=== PATIENT | male | born 1945 | race Caucasian/White ===

== ENCOUNTER 2018-03-12 11:23 | Observation (INO) | payer MEDICARE, OTHER ==
[2018-03-12] MEDS ORDERED: Gentamicin ADULT (*) 140 MG in NS 0.9% 100 ML* 100 ML IVPB ONE (13:28)
[2018-03-12] MEDS ORDERED: NS 0.9% IVPB ONE (13:28)
[2018-03-12] MEDS ORDERED: GENTAMICIN ADULT IVPB ONE (13:28)
[2018-03-12] MEDS ORDERED: NS 0.9% 1000 ML* 1,000 ML IV ONE (13:28)
[2018-03-12] MEDS ORDERED: Piperacillin/Tazobac ADVAN(*) 3.375 GM in NS 0.9% 100 ML* 100 ML IVPB ONE (13:28)
[2018-03-12] MEDS ORDERED: NS 0.9% 1000 ML* 2,000 ML IV ONE (13:29)
--- NOTE | 2018-03-12 13:36 | RAD ---
Indication: Chills, nausea and sepsis. 2 views of the chest including dual energy PA views demonstrate no mediastinal shift. Heart is of normal size and configuration. Lung roberts demonstrate no pleural fluid, nodules or masses. No definite alveolar consolidation is noted. IMPRESSION: No evidence of intracranial mass or hemorrhage is noted.
[2018-03-12] MEDS ORDERED: Acetaminophen TAB* 325 MG PO ONE (13:40)
--- NOTE | 2018-03-12 13:56 | ED ---
HPI Febrile Illness - HPI Summary HPI Summary: The pt is a 72 y/o male presenting to [facility] c/o sudden onset fever since today morning. He was referred by Dr. Orlando Weiss MD who gave him abx in his office today. The pt had an indwelling Alcaraz catheter changed 4 days ago. He notes chills, tremors and pallor but denies body aches. He has a follow up on Thursday 03/[address] Dye. - History of Current Complaint Chief Complaint: EDFluSymptoms Time Seen by Provider: 03/12/18 13:19 Hx Obtained From: Patient, Family/[employer] - Onset/Duration: Still Present Timing: Constant Current Severity: None Pain Intensity: 0 Pain Scale Used: 0-10 Numeric Aggravating Factors: Nothing Alleviating Factors: Nothing Associated Signs and Symptoms: Chills - Allergy/Home Medications Allergies/Adverse Reactions: Allergies Allergy/AdvReac Type Severity Reaction Status Date / Time No Known Allergies Allergy Verified 03/12/18 12:14 Home Medications: Home Medications Dutasteride (NF) [Avodart (NF)] 0.5 mg PO DAILY 03/12/18 [History Confirmed ] Sildenafil Citrate [Viagra] 50 - 100 mg PO DAILY PRN 03/12/18 [History Confirmed 03/12/18] Tamsulosin CAP* [Flomax CAP*] 0.4 mg PO DAILY 03/12/18 [History Confirmed ] PMH/Surg Hx/FS Hx/Imm Hx Previously Healthy: No Endocrine/Hematology History: Denies: Hx Diabetes Cardiovascular History: Denies: Hx Angina, Hx Coronary Artery Disease, Hx Hypercholesterolemia, Hx Hypertension, Hx Myocardial Infarction, Hx Pacemaker/ICD, Hx Valvular Heart Disease Respiratory History: Denies: Hx Asthma, Hx Chronic Obstructive Pulmonary Disease (COPD) History: Reports: Other Problems/Disorders - Indwelling Alcaraz catheter Sensory History: Denies: Hx Hearing Aid Psychiatric History: Denies: Hx Panic Disorder - Cancer History Cancer Type, Location and Year: None reported - Surgical History Surgery Procedure, Year, and Place: APPENDIX AGE 11, LEFT WRIST SURGERY, Infectious Disease History: No Infectious Disease History: Denies: Traveled Outside the [place] in Last 30 Days - Family History Known Family History: Negative: Cardiac Disease - Social History Occupation: Retired Lives: With Family Alcohol Use: Daily Alcohol Amount: 2 glasses/wine Substance Use Type: Reports: None Smoking Status (MU): Former Smoker Type: Cigarettes Review of Systems Constitutional: Negative - Body aches , Other - Positive: Tremors Positive: Fever, Chills Positive: Other - Positive: Pallor All Other Systems Reviewed And Are Negative: Yes Physical Exam - Summary Physical Exam Summary: GENERAL: Patient is a well developed and nourished M who is lying comfortable in the stretcher. Patient is not in any acute respiratory distress. HEAD AND FACE: Normocephalic EYES: PERRLA, EOMI x 2. EARS: Hearing grossly intact. MOUTH: Oropharynx within normal limits. NECK: Supple, trachea is midline, no adenopathy, no JVD, no carotid bruit. CHEST: Symmetric, no tenderness at palpation LUNGS: Clear to auscultation bilaterally. No wheezing or crackles. CVS: Regular rate and rhythm, S1 and S2 present, no murmurs or gallops appreciated. ABDOMEN: Soft, non-tender. Bowel sounds are normal. No abdominal abnormal pulsations. EXTREMITIES: Full ROM in all major joints, no edema, no cyanosis or clubbing. NEURO: Alert and oriented x 3. No acute neurological deficits. Speech is normal and follows commands. SKIN: Dry and warm Triage Information Reviewed: Yes Vital Signs On Initial Exam: Initial Vitals Temp Pulse Resp BP Pulse Ox 98.1 F 84 16 133/64 98 03/12/18 12:09 03/12/18 12:09 03/12/18 12:09 03/12/18 12:09 03/12/18 12:09 Vital Signs Reviewed: Yes Diagnostics - Vital Signs Vital Signs Temp Pulse Resp BP Pulse Ox 03/12/18 12:09 98.1 F 84 16 133/64 98 - Laboratory Result Diagrams: 03/12/18 13:50 03/12/18 13:50 Lab Statement: Any lab studies that have been ordered have been reviewed, and results considered in the medical decision making process. - Radiology CXR Radiology Interpretation Completed By: Radiologist - IMPRESSION: No evidence of intracranial mass or hemorrhage is noted. The ED physician reviewed this radiology report. Course/Dx - Course Course Of Treatment: A 72 year-old M presents to the ED with a CC of sudden onset fever since today morning. The pt had an indwelling Alcaraz catheter changed 4 days ago. He notes chills, tremors and pallor but denies body aches. A physical exam is unremarkable. A CXR is unremarkable. In the ED course, pt was given Acetaminophen 975 mg PO, Gentamicin in 100ml N.s O.9% IVPB, N.s 0.9% 3000mL IV and Piperacillin 3.375 mg in 100mL N.s 0.9% IVPB which improved the symptoms. I discussed the care of the patient with Dr. Matti MD- hospitalist who agreed to admit the patient. Patient will be admitted with a final Dx of fever. I discussed results with patient. The patient agrees with this plan. Allergies noted. - Diagnoses Provider Diagnoses: Fever - Provider Notifications Discussed Care Of Patient With: Alla Chino - Hospitalist Time Discussed With Above Provider: 13:55 Instructed by Provider To: Admit As Inpatient Discharge - Sign-Out/Discharge Documenting (check all that apply): Patient Departure - Admit - Discharge Plan Condition: Stable Disposition: ADMITTED TO [facility] - Billing Disposition and Condition Condition: STABLE Disposition: Admitted to [facility] - Attestation Statements Document Initiated by Scribe: Yes Documenting Scribe: Carolina James Provider For Whom Scribe is Documenting (Include Credential): Dr. Kan Linda MD Scribe Attestation: Carolina Vargas , scribed for Dr. Kan Linda MD on 03/12/18 at 2100. Scribe Documentation Reviewed: Yes Provider Attestation: The documentation as recorded by the scribCarolina lloyd accurately reflects the service I personally performed and the decisions made by me, Dr. Kan Linda MD
[2018-03-12 14:12] LABS: ABS Basophils 0 10^3/ul (0-0.2); ABS Eosinophils 0 10^3/ul (0-0.6); ABS Lymphocytes 0.2 10^3/ul (1.0-4.8); ABS Monocytes 0.6 10^3/ul (0-0.8); ABS Neutrophils 8.9 10^3/ul (1.5-7.7); ABS Nucleated RBC 0 10^3/ul; Eosinophil % 0.1 % (0-6); Hematocrit 39 % (42-52); Hemoglobin 13.1 g/dl (14.0-18.0); Lymphocyte % 2.2 % (25-47); Mean Corpuscular HGB Conc 34 g/dl (31-36); Mean Corpuscular Hemoglobin 31 pg (27-31); Mean Corpuscular Volume 92 fL (80-94); Mean Platelet Volume 8.6 um3 (7.4-10.4); Nucleated Red Blood Cells % 0; Platelet Count 141 10^3/ul (150-450); Red Blood Count 4.24 10^6/ul (4.00-5.40); Red Cell Distribution Width 13 % (10.5-15); White Blood Count 9.7 10^3/ul (3.5-10.8)
[2018-03-12 14:30] LABS: INR 0.96 (0.77-1.02)
[2018-03-12 14:45] LABS: EGFR Non-African American 53.6 (>60)
[2018-03-12] MEDS ORDERED: Ondansetron INJ* 2 MG/ML VIAL IV PRN (14:49)
[2018-03-12] MEDS ORDERED: Gentamicin ADULT per pharmacy 1 NOTE MISC FOLLOW UP PRN (14:56)
[2018-03-12] MEDS ORDERED: Zosyn per Pharmacy* NOTE FOLLOW UP SCH (15:00)
[2018-03-12 16:39] LABS: Urine Appearance Cloudy; Urine Blood 1+ (Negative); Urine Color Yellow; Urine Ketones Negative (Negative); Urine Protein 2+(100 mg/dL) (Negative); Urine Red Blood Cell Absent (Absent); Urine Specific Gravity 1.012 (1.010-1.030); Urine Urobilinogen Negative (Negative); Urine White Blood Cell 3+(>20/hpf) (Absent)
[2018-03-12] MEDS: ZOSYN 3.375 GM Q8H per EXTENDED INFUSION IVPB SCH ×2 (18:22)
[2018-03-12] MEDS: NS 0.9% 1000 ML* 1,000 ML IV SCH (18:26)
[2018-03-12] MEDS ORDERED: Tamsulosin CAP* 0.4 MG PO SCH (21:00)
--- NOTE | 2018-03-12 21:39 | HP ---
CC: Dr. Dye; Dr. Bryson Mayer * [facility] MEDICINE HISTORY AND PHYSICAL: DATE OF ADMISSION: 03/12/18 UROLOGIST: Dr. Dye. PRIMARY CARE PHYSICIAN: Dr. Bryson Mayer. ATTENDING PHYSICIAN: Dr. Alla Chino * (dictation provided by Frida Winter NP ). CHIEF COMPLAINT: Rigors. HISTORY OF PRESENT ILLNESS: Mr. Pa is a 72-year-old male with a past medical history of transient cardiomyopathy, now resolved, and recent diagnosis of urinary outlet obstruction secondary to enlarged prostate with bilateral hydronephrosis and chronic outpatient Alcaraz, who presents today to the hospital with sudden onset of chills and rigors at 9:30 a.m. this morning. Mr. Pa states that he originally had evaluation on 01/22/18 with abdomen and bladder ultrasound, which showed that he had bilateral hydronephrosis. Shortly after that, he had consultation with Dr. Dye and a Alcaraz was placed. The patient states that last week he went in to have the Alcaraz removed and did well until Thursday, when it was felt that he was likely having more retention; the patient, therefore, required replacement of the Alcaraz catheter. The patient was doing well until 9:30 a.m. this morning when he had the sudden onset of shaking chills. He went immediately to Dr. Dye's office where he was evaluated and thought to be having rigors with suspicion for sepsis secondary to urinary tract infection with indwelling Alcaraz. The patient denies any other symptoms. States that prior to the development of rigors, he had no symptoms including chest pain, shortness of breath, nausea, vomiting, diarrhea, or abdominal pain. In the emergency room, Mr. Pa had labs, which showed no leukocytosis. His CRP was only 10.47. His creatinine was 1.32, which is slightly elevated from his baseline. Urinalysis is pending and urine cultures were sent from Dr. Dye 's office. Lactic acid is 1.1. Vitals are stable, but he is febrile with a temperature of 103.6. PAST MEDICAL HISTORY: 1. History of cardiomyopathy, now resolved. 2. History of prostate enlargement with bladder outlet obstruction. MEDICATIONS: 1. Ramipril 2.5 mg p.o. daily. 2. Sildenafil p.r.n. ALLERGIES: No known drug allergies. FAMILY HISTORY: The patient reports his mother is still alive at age 97, she has no significant past medical history; and dad at 99 of old age. SOCIAL HISTORY: The patient was a former smoker in college. He denies alcohol or drug use. He lives with his . His , Keya, will be the healthcare proxy. REVIEW OF SYSTEMS: A 14-point review of systems was completed with Mr. Pa and all those not mentioned above were negative. PHYSICAL EXAMINATION GENERAL: Mr. Pa is sitting up in the bed. He is in no acute distress. VITAL SIGNS: Temperature 103.6, pulse rate 81, respiratory rate 16, O2 saturation 98% on room air, blood pressure 133/64. LUNGS: Clear to auscultation bilaterally with no accessory muscle use and good aeration. HEART: S1, S2. No murmur, rub, or gallop and regular. ABDOMEN: Soft, nontender, with bowel sounds positive x4. EXTREMITIES: No cyanosis or edema. NEUROLOGIC: He is alert. He is oriented x3. He moves all extremities equally. There is no facial asymmetry or focal weakness. Extraocular movements are intact. SKIN: Intact. DIAGNOSTIC STUDIES/LAB DATA: Sodium 133, potassium 4.4, chloride 101, serum bicarbonate 26, BUN 20, creatinine 1.32, glucose 117, lactic acid 1.1. CRP 10.47. Troponin 0.00. WBC 9.7, hemoglobin 13.1, hematocrit 39, platelet count is 141, and ESR is pending. ASSESSMENT AND PLAN: Mr. Pa is a 72-year-old male with past medical history of cardiomyopathy, now resolved, as well as recent discovery of prostatic enlargement, urinary outlet obstruction, and placement of a chronic indwelling Alcaraz, who presents today to the hospital with sudden onset of rigors , thought to be having a urinary tract infection with likely sepsis. Our plans are for observation in the hospital for the followin. Rigors. The patient has a fever of 103.6. He has no leukocytosis. He is not tachycardic or tachypneic. He does not meet strict definition for sepsis today; however, given the severity and sudden onset of his symptoms, it is recommended that he be observed overnight for intravenous antibiotics given the fact that he has a complicated urinary tract infection with chronic indwelling Alcaraz. Plans will be for Zosyn and gentamicin under the direction of Dr. Dye. Dr. Dye states that the Alcaraz catheter does not need to be changed as it was changed 4 days ago. The patient will continue with IV fluids through the evening for maintenance and has received several boluses in the ED. We will monitor I's and O's. The patient's creatinine is slightly elevated from baseline. We will hold ramipril and follow with repeat labs tomorrow. 2. History of cardiomyopathy. The patient states that he is on ramipril for a history of cardiomyopathy that is now resolved; we will hold during an acute infection. 3. DVT prophylaxis with SCDs. 4. Code status is full code. TIME SPENT: Approximately 60 minutes were spent on the admission of this patient, more than half the time spent with the patient at the bedside reviewing the events leading up to this hospitalization, performing the physical examination, and reviewing the plan of care. FRIDA WINTER NP [id number]/[facility] #: [id number] HARVEY
[2018-03-12] MEDS: Acetaminophen TAB* 325 MG PO PRN (23:32)
[2018-03-13] MEDS: ZOSYN 3.375 GM Q8H per EXTENDED INFUSION IVPB SCH ×6 (01:57→18:01)
[2018-03-13 07:51] LABS: ABS Basophils 0 10^3/ul (0-0.2); ABS Eosinophils 0 10^3/ul (0-0.6); ABS Lymphocytes 0.2 10^3/ul (1.0-4.8); ABS Monocytes 0.3 10^3/ul (0-0.8); ABS Neutrophils 5.1 10^3/ul (1.5-7.7); ABS Nucleated RBC 0 10^3/ul; EGFR Non-African American 54.6 (>60); Eosinophil % 0 % (0-6); Hematocrit 35 % (42-52); Hemoglobin 12.2 g/dl (14.0-18.0); Lymphocyte % 2.9 % (25-47); Mean Corpuscular HGB Conc 35 g/dl (31-36); Mean Corpuscular Hemoglobin 32 pg (27-31); Mean Corpuscular Volume 91 fL (80-94); Mean Platelet Volume 8.7 um3 (7.4-10.4); Nucleated Red Blood Cells % 0; Platelet Count 113 10^3/ul (150-450); Red Blood Count 3.85 10^6/ul (4.00-5.40); Red Cell Distribution Width 13 % (10.5-15); White Blood Count 5.6 10^3/ul (3.5-10.8)
[2018-03-13] MEDS: Acetaminophen TAB* 325 MG PO PRN (08:24)
[2018-03-13] MEDS: Ramipril CAP* 5 MG PO SCH ×2 (13:07→13:09)
[2018-03-13] MEDS: DUTASTERIDE 0.5 MG PO SCH (13:07)
[2018-03-13] MEDS: NS 0.9% 1000 ML* 1,000 ML IV SCH (15:19)
[2018-03-13] MEDS ORDERED: Gentamicin ADULT (*) 140 MG in NS 0.9% 100 ML* 100 ML IVPB SCH (16:00)
--- NOTE | 2018-03-13 16:52 | PN ---
Subjective Date of Service: 03/13/18 Interval History: Mr. Pa reports feeling well today. He offers no complaints. Reports good urine output. No hematuria. Wearing leg bag currently and managing own dupont. Anxious to return home. Denies CP, SOB, N/V/D, dizziness. Family History: Unchanged from Admission Social History: Unchanged from Admission Past Medical History: Unchanged from Admission Objective Active Medications: Acetaminophen (Tylenol Tab*) 650 mg PO Q6H PRN Dutasteride (Avodart (Nf)) 0.5 mg PO DAILY [facility] Sodium Chloride (Ns 0.9% 1000 Ml*) 1,000 mls @ 100 mls/hr IV PER RATE [facility] Gentamicin Sulfate 140 mg/ (Sodium Chloride) 103.5 mls @ 207 mls/hr IVPB Q24H [facility] Piperacillin Sod/Tazobactam (Sod 3.375 gm/ Sodium Chloride) 100 mls @ 25 mls/ hr IVPB Q8H [facility] Ondansetron HCl (Zofran Inj*) 4 mg IV Q6H PRN Pharmacy Consult (Zosyn Per Pharmacy*) 1 note FOLLOW UP .ZOSYN PER PHARMACY [facility] Pharmacy Consult (Gentamicin Adult Per Pharmacy) 1 note FOLLOW UP .GENT PER PHARMACY PRN Pharmacy Profile Note (Gentamicin Trough Level) 1 note FOLLOW UP ONCE ONE Pharmacy Profile Note (Gentamicin Peak Level*) 1 note FOLLOW UP ONCE ONE Ramipril (Altace Cap*) 5 mg PO DAILY [facility] Tamsulosin HCl (Flomax Cap*) 0.4 mg PO DAILY [facility] Vital Signs - 8 hr 03/13/18 03/13/18 03/13/18 09:15 11:45 15:35 Temperature 97.9 F 98.6 F 97.6 F Pulse Rate 54 110 Respiratory 18 18 Rate Blood Pressure 101/53 126/49 (mmHg) O2 Sat by Pulse 100 100 Oximetry 03/13/18 16:30 Temperature 97.5 F Pulse Rate 59 Respiratory 24 Rate Blood Pressure 139/45 (mmHg) O2 Sat by Pulse 100 Oximetry Oxygen Devices in Use Now: None Appearance: Elderly male sitting in bed in NAD Eyes: No Scleral Icterus Ears/Nose/Mouth/Throat: Mucous Membranes Moist Neck: NL Appearance and Movements; NL JVP Respiratory: Symmetrical Chest Expansion and Respiratory Effort, Clear to Auscultation Cardiovascular: NL Sounds; No Murmurs; No JVD, RRR Abdominal: NL Sounds; No Tenderness; No Distention Extremities: No Edema Skin: No Rash or Ulcers Neurological: Alert and Oriented x 3 Lines/Tubes/Other Access: Clean, Dry and Intact Peripheral IV Nutrition: Taking PO's Result Diagrams: 03/13/18 07:11 03/13/18 07:11 Assess/Plan/Problems-Billing Assessment: Mr. Pa is a 72yo with PMH of cardiomyopathy and bladder outlet obstruction r/t BPH requiring chronic dupont presented with c/o chills and rigors and was admitted observation for likely UTI. - Patient Problems (1) UTI (urinary tract infection) Current Visit: Yes Status: Acute Priority: High Comment: - Dupont catheter related, present on admission - UA shows leukocyte esterase and pyuria without bacteria - Awaiting urine culture - Continue zosyn, gentamicin per recommendations from Dr. Moore (2) BPH (benign prostatic hyperplasia) Current Visit: Yes Status: Chronic Priority: High Code(s): N40.0 - BENIGN PROSTATIC HYPERPLASIA WITHOUT LOWER URINRY TRACT SYMP SNOMED Code(s): 838378379 Comment: - With bladder outlet obstruction requiring chronic dupont since 01/2018 - Continue avodart, tamsulosin (3) Cardiomyopathy Current Visit: Yes Status: Chronic Priority: Medium Code(s): I42.9 - CARDIOMYOPATHY, UNSPECIFIED SNOMED Code(s): 34987186 Comment: - Continue ramipril (4) Full code status Current Visit: Yes Status: Acute Priority: High Code(s): Z78.9 - OTHER SPECIFIED HEALTH STATUS SNOMED Code(s): 223461165 (5) DVT prophylaxis Current Visit: Yes Status: Acute Priority: High Code(s): HAQ6330 - SNOMED Code(s): 937470216 Comment: - SCDs Status and Disposition: Observation. Awaiting urine culture results.
[2018-03-13] MEDS ORDERED: Tamsulosin CAP* 0.4 MG PO SCH (18:00)
[2018-03-14] MEDS: NS 0.9% 1000 ML* 1,000 ML IV SCH (00:48)
[2018-03-14] MEDS: ZOSYN 3.375 GM Q8H per EXTENDED INFUSION IVPB SCH ×4 (01:34→10:31)
[2018-03-14 07:01] LABS: ABS Basophils 0 10^3/ul (0-0.2); ABS Eosinophils 0 10^3/ul (0-0.6); ABS Lymphocytes 0.8 10^3/ul (1.0-4.8); ABS Monocytes 0.3 10^3/ul (0-0.8); ABS Neutrophils 2.7 10^3/ul (1.5-7.7); ABS Nucleated RBC 0 10^3/ul; Eosinophil % 0.8 % (0-6); Hematocrit 36 % (42-52); Hemoglobin 12.3 g/dl (14.0-18.0); Lymphocyte % 20.1 % (25-47); Mean Corpuscular HGB Conc 35 g/dl (31-36); Mean Corpuscular Hemoglobin 32 pg (27-31); Mean Corpuscular Volume 92 fL (80-94); Mean Platelet Volume 8.5 um3 (7.4-10.4); Nucleated Red Blood Cells % 0.1; Platelet Count 100 10^3/ul (150-450); Red Blood Count 3.87 10^6/ul (4.00-5.40); Red Cell Distribution Width 13 % (10.5-15); White Blood Count 3.8 10^3/ul (3.5-10.8)
[2018-03-14 07:17] LABS: EGFR Non-African American 55.1 (>60)
[2018-03-14] MEDS: Ramipril CAP* 5 MG PO SCH (07:28)
[2018-03-14] MEDS: DUTASTERIDE 0.5 MG PO SCH (07:29)
[2018-03-14 07:32] VITALS: BP 113/51
[2018-03-14] MEDS ORDERED: Ramipril CAP* 5 MG PO SCH (09:00)
--- NOTE | 2018-03-15 03:48 | DS ---
CC: Dr. Bryson Mayer; Dr. Dye * DISCHARGE SUMMARY: DATE OF ADMISSION: 03/12/18 DATE OF DISCHARGE: 03/14/18 PRIMARY CARE PROVIDER: Dr. Bryson Mayer. UROLOGIST: Dr. Dye. ATTENDING PHYSICIAN: Dr. Hardin * (dictated by Fina Grant NP) PRIMARY DIAGNOSIS: 1. Urinary tract infection; catheter related, present on admission. SECONDARY DIAGNOSES: 1. Benign prostatic hypertrophy. 2. Cardiomyopathy. STUDIES WHILE IN THE HOSPITAL: 1. Chest x-ray on 03/12/18 shows no acute cardiopulmonary disease. HISTORY OF PRESENT ILLNESS AND HOSPITAL COURSE: Mr. Pa is a 72-year-old male with a past medical history of cardiomyopathy and bladder outlet obstruction secondary to BPH requiring chronic Alcaraz who presented to the emergency room with chills and rigors on 03/12/18. Please see the history and physical by Frida Winter NP for complete summary of the events leading up to this hospitalization; but in short, the patient reported sudden onset of chills and rigors in the morning. He has been seeing Dr. Dye due to hydronephrosis and he had a chronic Alcaraz placed in January. He saw Dr. Dye last week to have the Alcaraz removed, although it needed to be reinserted on Thursday due to increased retention. He was seen in Dr. Dye's office on the day of admission and Dr. Dye referred him to the emergency room. While in the emergency room, he had a CBC showing a normal white blood count. He had a CRP of 10.47, creatinine was slightly elevated from baseline at 1.32, lactic acid was normal. He had a urinalysis, which showed 2+ protein, 1+ blood, positive nitrites, 2+ leukocyte esterase, 3+ white blood cells, though absent bacteria. In the emergency room, he did have a fever of 103.6. He was admitted for observation by the hospitalist service. He did not meet sepsis criteria, though because of the severity and sudden onset of symptoms, it was decided that he should be observed and placed on intravenous antibiotics. On admission, Dr. Dye was consulted and he recommended placing the patient on Zosyn and gentamicin. He did not feel as though the Alcaraz catheter needed to be changed as it was changed 4 days prior. The patient was given IV fluids and his creatinine returned to baseline. The following day, the patient reported feeling well. He remained afebrile overnight. Vital signs were stable, although he was kept another night as his urine culture had not resulted. As of the day of discharge, the patient's urine culture has resulted with pseudomonas aeruginosa. The patient reports feeling well and is anxious to return home. Mr. Pa is stable for discharge today. Vital Signs are as follows: Temp 98.1, heart rate 61, respiratory rate 20, oxygen saturation 97% on room air, and blood pressure 113/51. DISCHARGE MEDICATIONS: New Medication: 1. Ciprofloxacin 500 mg p.o. b.i.d. for 12 days. Continued home medications: 1. Avodart 0.5 mg p.o. daily. 2. Ramipril 5 mg p.o. daily. 3. Sildenafil 50-100 mg p.o. daily p.r.n. 4. Tamsulosin 0.4 mg p.o. daily. DISCHARGE PLAN: Mr. Pa will be discharged home. Activity will be as tolerated, though the patient has been instructed to significantly decrease his activity level from baseline as he reports typically running 5 miles per day. He has been prescribed a 12-day course of ciprofloxacin as noted above to complete a 14-day course of antibiotic therapy. Due to the complexity of this UTI, it was determined that a 14-day course was necessary. I will note that the patient was hesitant to take ciprofloxacin as he has heard about significant side effects. I spoke in depth with the patient and his about the possible side effects, though I stressed the fact that pseudomonas is typically a somewhat resistant organism and because of the complexity of his UTI , a fluoroquinolone was highly recommended. He has agreed to take the ciprofloxacin. He had an appointment with Dr. Dye tomorrow. I have advised him to keep his appointment. He may speak with Dr. Dye at that time about the possibility of switching to another antibiotic once sensitivities are obtained. Currently, there are no sensitivities available. He has been instructed to follow up with his primary care provider in 4 to 7 days. He has been instructed to return to the emergency room or the nearest hospital for any worsening of symptoms, shortness of breath, lightheadedness, dizziness, chest discomfort, high fevers, chills, night sweats, loss of consciousness, or any other worsening signs or symptoms. This is a summarized report of a complex medical history and hospital stay. For further details, please see entire medical record. TIME SPENT: Approximately 45 minutes were spent on this discharge, greater than half of that time was spent [id number] with the patient and his discussing discharge plans and instructions. FINA GRANT NP [id number]/[facility] #: [id number] HAR[place]Y
[2018-03-15] MEDS ORDERED: Gentamicin Trough Level 1 NOTE MISC FOLLOW UP ONE (15:30)
[2018-03-15] MEDS ORDERED: Gentamicin PEAK LEVEL* 1 NOTE MISC FOLLOW UP ONE (17:00)
== END 2018-03-14 12:35 | disposition home or self-care (01) ==
LOC: ED 11:23 → MED 14:43
PROVIDERS: ADMIT Internal Medicine; ATTEND Internal Medicine
DX: N39.0 Urinary tract infection, site not specified (principal); N40.0 Benign prostatic hyperplasia without lower urinary tract symptoms; I42.9 Cardiomyopathy, unspecified; Z87.891 Personal history of nicotine dependence; R50.9 Fever, unspecified; Z96.0 Presence of urogenital implants
CPT/HCPCS: 36415; 71046; 80048; 80053; 81003; 81015; 83605; 83880; 84484; 85025; 85610; 85652; 85730; 86140; 87040; 87077; 87086; 87186; 96365; 96366; 99284; A9270-GY; G0378; J1580; J2543

== ENCOUNTER 2018-08-16 07:22 | Observation (INO) | payer MEDICARE, OTHER ==
--- NOTE | 2018-08-02 20:28 | HP ---
CC: Dr. Bryson Mayer; Dr. Claudia Collado * ADMITTING HISTORY AND PHYSICAL: DATE OF ADMISSION: 08/11/18 ADMITTING DIAGNOSES: 1. Benign prostatic hypertrophy. 2. Urinary retention. PLANNED PROCEDURE: Transurethral resection of prostate. SURGEON: Dr. Dye. HISTORY OF PRESENT ILLNESS: Crispin Pa is a 72-year-old gentleman who had urinary retention which has been managed with an indwelling Alcaraz catheter for the last 6 months. He is now being brought in for transurethral resection of prostate after having failed voiding trials in the past in spite of taking Flomax and Avodart. PAST MEDICAL HISTORY: Significant for: 1. Nonischemic cardiomyopathy. 2. Hypertension. 3. Urinary retention. MEDICATIONS ON ADMISSION: 1. Ramipril 5 mg daily. 2. Avodart 0.5 mg daily. ALLERGIES: No known drug allergies. REVIEW OF SYSTEMS: He denies any chest pain or shortness of breath. He recently had a cardiac evaluation with Dr. Collado which is being faxed over to same-day surgery, which revealed him to be in good condition from a cardiovascular point of view. PHYSICAL EXAMINATION GENERAL: Reveals a pleasant, elderly gentleman. VITAL SIGNS: Blood pressure is 120/70; pulse 79 per minute, regular; temperature 96.2; oxygen saturation 98% on room air. LUNGS: Clear bilaterally. CARDIOVASCULAR EXAM: Regular rate and rhythm. S1, S2. ABDOMEN: Soft without masses. A Alcaraz catheter is in place. IMPRESSION: A 72-year-old gentleman with longstanding history of voiding dysfunction and urinary retention secondary to prostate enlargement. I have discussed the procedure of transurethral resection of prostate along with possible risks of bleeding, infection, erectile and ejaculatory dysfunction, and urinary incontinence. PLAN: Planned procedure is transurethral resection of prostate. [id number]/[facility] #: [id number] [facility]
[~2018-08-16 07:22] MED LIST: Acetaminophen TAB* 325 MG PO ONE; Buffered Lidocaine 1% SYRIN* 1 ML/SYRINGE INTRADERM ONE; Dexamethasone TAB* 4 MG PO ONE; Famotidine IV* 10 MG/ML 2 ML (20 mg) IV ONE; Gentamicin ADULT (*) 160 MG in NS 0.9% 100 ML* 100 ML IVPB ONE; Lactated Ringers 1000 ML Bag* 1,000 ML IV SCH; Ondansetron TAB* 4 MG PO ONE
[2018-08-16] MEDS ORDERED: Dexamethasone TAB* 4 MG ONE (07:55)
[2018-08-16] MEDS ORDERED: Ondansetron ODT TAB* 4 MG ONE (07:55)
[2018-08-16] MEDS ORDERED: cefTRIAXone(*) 2 GM ADDV.VIAL IVPB ONE (07:55)
[2018-08-16] MEDS ORDERED: Acetaminophen TAB* 325 MG ONE (07:55)
[2018-08-16] MEDS ORDERED: Buffered Lidocaine 1% SYRIN* 1 ML/SYRINGE INTRADERM ONE (07:55)
[2018-08-16] MEDS ORDERED: Famotidine IV* 10 MG/ML 2 ML (20 mg) ONE ×2 (07:56→09:14)
[2018-08-16] MEDS: Lactated Ringers 1000 ML Bag* 1,000 ML IV SCH ×2 (08:06→18:13)
[2018-08-16] MEDS ORDERED: fentaNYL* 50 MCG/ML 2 ML VIAL (100 MCG VIAL) ONE (08:31)
[2018-08-16] MEDS ORDERED: Midazolam* 1 MG/ML 2 ML VIAL (2 MG) ONE (08:32)
[2018-08-16] MEDS ORDERED: Lidocaine 2% PF * 5 ML VIAL ONE (09:26)
[2018-08-16] MEDS ORDERED: Propofol* 10 MG/ML 20 ML BTL ONE (09:26)
[2018-08-16] MEDS ORDERED: Dexamethasone IV* 4 MG/ML 1 ML (4 MG) ONE (09:26)
[2018-08-16] MEDS ORDERED: Furosemide IV* 10 MG/ML 2 ML VIAL (20 MG) ONE (10:07)
[2018-08-16] MEDS ORDERED: DiMENhydriNATE IV* 50 MG/ML VIAL IV PUSH PRN (10:09)
[2018-08-16] MEDS ORDERED: diPHENhydraMINE IV* 50 MG/ML 1 ml VIAL (BENADRYL) IV PRN (10:09)
[2018-08-16] MEDS ORDERED: PROCHLORPERAZINE INJ 5 MG/ML 2 ML VIAL IV PRN (10:09)
[2018-08-16] MEDS ORDERED: HYDROcodone/ACETAMIN 5-325 MG* 1 TAB PO PRN ×2 (10:09)
[2018-08-16] MEDS ORDERED: fentaNYL* 50 MCG/ML 2 ML VIAL (100 MCG VIAL) IV PRN (10:09)
[2018-08-16] MEDS ORDERED: Ondansetron INJ* 2 MG/ML VIAL IV PRN (10:09)
[2018-08-16] MEDS ORDERED: Naloxone* 0.4 MG/ML 1 ML VIAL IV PRN (10:09)
[2018-08-16] MEDS ORDERED: HYDROcodone/ACETAMIN 5-325 MG* 1 TAB ONE (11:36)
[2018-08-16] MEDS ORDERED: Oxybutynin TAB* 5 MG ONE (12:11)
[2018-08-16] MEDS ORDERED: oxyCODONE/Acetamin 5/325 MG* TAB ONE (12:11)
[2018-08-16] MEDS ORDERED: oxyCODONE/Acetamin 5/325 MG* TAB PO PRN (12:15)
[2018-08-16] MEDS ORDERED: Oxybutynin TAB* 5 MG PO PRN (12:15)
[2018-08-16] MEDS ORDERED: Acetaminophen TAB* 325 MG PO PRN (12:16)
--- NOTE | 2018-08-16 12:24 | OP ---
CC: Dr. Bryson Mayer * DATE OF OPERATION: 08/16/18 - ROOM #343 DATE OF : 49 SURGEON: Orlando Dye MD ANESTHESIOLOGIST: Dr. Zaidi. ANESTHESIA: General. PRE-OP DIAGNOSES: 1. Benign prostatic hyperplasia. 2. Urinary retention. POST-OP DIAGNOSES: 1. Benign prostatic hyperplasia. 2. Urinary retention. OPERATIVE PROCEDURE: 1. Transurethral resection of prostate. 2. Transurethral incision of bladder neck. COMPLICATIONS: None. BLOOD LOSS: Less than 100 cc. CATHETER: 24-[place] Alcaraz. POSTOPERATIVE CONDITION: Stable. INDICATIONS: Crispin Pa is a 72-year-old gentleman with a history of urinary retention secondary to prostate enlargement who has failed conservative treatment measures and failed multiple voiding trials. DESCRIPTION OF PROCEDURE: After induction of general anesthesia, the patient was placed in dorsal lithotomy position. Sequential compression devices were in place and functioning. Initial cystoscopy revealed a normal appearing urethra, significantly enlarged obstructing vascular prostate and a normal appearing bladder. Using the resectoscope, transurethral resection of the prostate was carried out in the standard fashion with the bladder neck and median lobe being resected first followed by the lateral lobe tissue and then the anterior tissue. At no point was the resection carried beyond the veru in an effort to avoid any potential injury to the sphincter. The resected tissue was removed from the bladder using the Ellik evacuator. Next using a right-angle knife electrode, bladder neck incisions were carried out at the 5, 7 and 12 o'clock positions in an effort to minimize any potential risk of postoperative bladder neck contracture. A 24-[place] Alcaraz catheter was introduced without difficulty and connected to a drainage bag. The patient tolerated the procedure satisfactorily and was transferred back to the recovery area in stable condition. [id number]/[facility] #: [id number] [facility]
[2018-08-16 15:17] LABS: BUN/Creatinine Ratio 13.8 (8-20); Calcium 8.3 mg/dL (8.6-10.3); EGFR African American 80.9 (>60); EGFR Non-African American 66.9 (>60); Potassium 4.4 mmol/L (3.5-5.0)
[2018-08-16] MEDS: Docusate CAP* 100 MG PO SCH ×2 (15:50→20:22)
[2018-08-16] MEDS: oxyCODONE/Acetamin 5/325 MG* TAB PO PRN (20:23)
[2018-08-17] MEDS: oxyCODONE/Acetamin 5/325 MG* TAB PO PRN ×2 (00:54→05:52)
[2018-08-17] MEDS: Lactated Ringers 1000 ML Bag* 1,000 ML IV SCH ×2 (00:55→07:52)
[2018-08-17 07:59] VITALS: BP 120/61
[2018-08-17] MEDS ORDERED: Ramipril CAP* 5 MG PO SCH (09:00)
[2018-08-17] MEDS ORDERED: cefTRIAXone(*) 2 GM in NS 0.9% 100 ML* 100 ML IVPB ONE (09:00)
--- NOTE | 2018-08-17 23:12 | DS ---
CC: Dr. Bryson Mayer * DISCHARGE SUMMARY: DATE OF ADMISSION: 08/16/18 DATE OF DISCHARGE: 08/17/18 SURGICAL PROCEDURES ON THIS ADMISSION: On 08/16/18, transurethral resection of prostate. ADMITTING HISTORY AND HOSPITAL COURSE: Crispin Pa is a 72-year-old gentleman with a longstanding history of urinary retention secondary to BPH. He has been managed with an indwelling Alcaraz catheter and is now being brought in for transurethral resection of prostate. For details, please see admitting history and physical. HOSPITAL COURSE: On 08/16/18, Mr. Pa underwent transurethral resection of prostate under general anesthesia. Surgery was smooth and uneventful. He was monitored overnight in the hospital and I assessed him in the evening of and then also in the cement conveyor operator on 08/17/18. His Alcaraz catheter was draining clear urine with good output and he was comfortable. He was discharged home for outpatient followup for catheter removal as per usual protocol. [id number]/[facility] #: [id number] [facility]
== END 2018-08-17 10:10 | disposition home or self-care (01) ==
LOC: OR 07:22 → SSU 10:55
PROVIDERS: ADMIT Urology; ATTEND Urology
DX: N40.0 Benign prostatic hyperplasia without lower urinary tract symptoms (principal); R33.9 Retention of urine, unspecified; Z96.0 Presence of urogenital implants; I42.9 Cardiomyopathy, unspecified; I10 Essential (primary) hypertension; Z79.899 Other long term (current) drug therapy
CPT/HCPCS: 36415; 80048; 88305; 96374; 96375; A9270-GY; G0378; J0696; J1100; J1580; J1940; J2250; J2704; J3010; J8540